=== PATIENT | female | born 1975 | race Caucasian/White ===

== ENCOUNTER 2018-06-05 22:30 | Emergency (ER) | payer SELFPAY ==
[2018-06-05 22:43] VITALS: RESP 16
--- NOTE | 2018-06-05 22:49 | C.PDOC ---
History Of Present Illness 43 year old female presents to the ER with EMS and police for loud domestic arguement. Patient has questionable Hx of anxiety, she as arguing with and neighbors called 911, no physical altercation. Denies other complaints. Time Seen by Provider: 06/05/18 22:42 Chief Complaint (Nursing): Psychiatric Evaluation History Per: Patient History/Exam Limitations: no limitations Onset/Duration Of Symptoms: Hrs Current Symptoms Are (Timing): Still Present Suicide/Self Injury Attempted (Context): None Recent travel outside of the [place]: No Past Medical History Reviewed: Historical Data, Nursing Documentation, Vital Signs Vital Signs: Last Vital Signs Temp 97.7 F 06/05/18 22:30 Pulse 95 H 06/05/18 22:30 Resp 20 06/05/18 22:30 BP 135/96 H 06/05/18 22:30 Pulse Ox 95 06/05/18 22:30 - Medical History PMH: Denies: Diabetes, Hepatitis, HIV, HTN, Seizures, Sexually Transmitted Disease Family History: States: Unknown Family Hx - Social History Hx Tobacco Use: No Hx Alcohol Use: No Hx Substance Use: No - Immunization History Hx Tetanus Toxoid Vaccination: No Hx Influenza Vaccination: No Hx Pneumococcal Vaccination: No Review Of Systems Constitutional: Negative for: Fever, Chills Cardiovascular: Negative for: Chest Pain, Palpitations Respiratory: Negative for: Cough, Shortness of Breath Gastrointestinal: Negative for: Nausea, Vomiting Neurological: Negative for: Weakness, Numbness Physical Exam - Physical Exam Appears: Non-toxic Skin: Normal Color, Warm, Dry Head: Atraumatic, Normacephalic Eye(s): bilateral: Normal Inspection Oral Mucosa: Moist Neck: Normal, Supple Chest: Symmetrical, No Tenderness Cardiovascular: Rhythm Regular Respiratory: Normal Breath Sounds, No Rales, No Rhonchi, No Wheezing Gastrointestinal/Abdominal: Soft, No Tenderness Neurological/Psych: Oriented x3, Normal Speech ED Course And Treatment O2 Sat by Pulse Oximetry: 95 (room air) Pulse Ox Interpretation: Normal Reevaluation Time: 00:51 Reassessment Condition: Improved Medical Decision Making Medical Decision Making: d/w CRisis, ok to d/c home suspect personality disorder, no SI/HI successfully running household and raising 9 y/o. outpatient f/u encouraged. Disposition Doctor Will See Patient In The: Office Counseled Patient/Family Regarding: Studies Performed, Diagnosis - Disposition Referrals: [facility] [Outside] [facility] [Outside] [facility] [Outside] [facility] [Outside] Disposition: HOME/ ROUTINE Disposition Time: 00:52 Condition: GOOD Additional Instructions: sigue con los servicios psychiatricos para mora anxiedad Llama para hacer larisa cuando Ud quiere Instructions: Anxiety, Adult (DC) Forms: [employer] ([place]) Print Language: BOLIVIAN - Clinical Impression Clinical Impression: Anxiety - Scribe Statement The provider has reviewed the documentation as recorded by the [employer] [place] All medical record entries made by the Kaylaibe were at my direction and personally dictated by me. I have reviewed the chart and agree that the record accurately reflects my personal performance of the history, physical exam, medical decision making, and the department course for this patient. I have also personally directed, reviewed, and agree with the discharge instructions and disposition.
[2018-06-06 01:09] VITALS: BP 148/70; PULSE 84; TEMP 99
[2018-06-06 04:30] VITALS: O2SAT 95
== END 2018-06-06 01:10 | disposition home or self-care (01) ==
LOC: C.ER 22:30
DX: F41.9 Anxiety disorder, unspecified (principal)